=== PATIENT | male | born 1960 | race Caucasian/White ===

== ENCOUNTER 2018-11-25 05:08 | Inpatient (IN) ==
--- NOTE | 2018-11-12 15:26 | Anesthesiology Consultation ---
Date of Service November 12, 2018 History Surgery Operation Date: 11/25/18 07:30 Proposed Procedures p Robotic Assisted Laparoscopic Radical Retropubic Prostatectomy - Kushal Allred MD Height/Weight Height: 5 ft 11 in Weight: 71.668 kg Allergies Allergy/AdvReac Type Severity Reaction Status Date / Time No Known Allergies Allergy Verified 11/10/18 08:18 Medications Home Medications Medication Instructions Recorded Confirmed Last Taken aspirin [Aspir-81] 81 mg PO QAM 11/10/18 11/10/18 Unknown atorvastatin 20 mg PO QAM 11/10/18 11/10/18 Unknown lisinopril 20 mg PO QAM 11/10/18 11/10/18 Unknown magnesium oxide 250 mg PO BID 11/10/18 11/10/18 Unknown metformin 1,000 mg PO BID 11/10/18 11/10/18 Unknown multivitamin 1 cap PO QAM 11/10/18 11/10/18 Unknown pantoprazole 40 mg PO QAM 11/10/18 11/10/18 Unknown ranitidine HCl [Zantac 75] 75 mg PO HS 11/10/18 11/10/18 Unknown thiamine HCl (vitamin B1) 50 mg PO QAM 11/10/18 11/10/18 Unknown Past Medical History Medical History Barretts esophagus DX SEP 2015, PT WAS HAVING GI BLEED ISSUES AND EVALUATED. Borderline diabetes PT PLACED ON METFORMIN Chronic obstructive pulmonary disease GERD (gastroesophageal reflux disease) History of cirrhosis of liver History of gastric ulcer History of prostate cancer RECENT DIAGNOSIS History of tooth extraction Hyperlipidemia Hypertension Sleep apnea PT DOES NOT WEAR DEVICE Past Surgical History Surgical History History of cardiac cath [facility]. [facility], PT HAS STENT X1. NO HX OF GA, PT WAS EVALUATED FOR SYMPTOMS OF CHEST PAIN, NO HX OF GA. History of colonoscopy History of esophagogastroduodenoscopy (EGD) History of heart artery stent History of tonsillectomy Social History Smoking Status: Former smoker tobacco type: cigarettes Smoking cigarettes per day: QUIT 11 YEARS. HX OF 1.5PPD Do You Dip or Chew Tobacco: No Hx Alcohol Use: No Alcohol Intake Frequency Comment: QUIT 2 YEARS AGO Hx Substance Use: No substance use type: marijuana Substance Use Type Other:: OCC. USE.
--- NOTE | 2018-11-12 15:39 | PAT Medication Instructions ---
Medication Instructions Date of Service November 12, 2018 Home Medications aspirin [Aspir-81] 81 mg PO QAM atorvastatin 20 mg PO QAM lisinopril 20 mg PO QAM magnesium oxide 250 mg PO BID metformin 1,000 mg PO BID multivitamin 1 cap PO QAM pantoprazole 40 mg PO QAM ranitidine HCl [Zantac 75] 75 mg PO HS thiamine HCl (vitamin B1) 50 mg PO QAM ASK your prescriber and surgeon aspirin [Aspir-81] 81 mg PO QAM DO NOT take the morning of surgery lisinopril 20 mg PO QAM magnesium oxide 250 mg PO BID metformin 1,000 mg PO BID multivitamin 1 cap PO QAM thiamine HCl (vitamin B1) 50 mg PO QAM Take morning of surgery With a small sip of water, OTHERWISE NOTHING TO EAT OR DRINK AFTER MIDNIGHT: atorvastatin 20 mg PO QAM pantoprazole 40 mg PO QAM Take evening before surgery magnesium oxide 250 mg PO BID metformin 1,000 mg PO BID ranitidine HCl [Zantac 75] 75 mg PO HS Other Notes If you have any questions please call us at [phone] or [phone] or [phone] or [phone]
--- NOTE | 2018-11-13 09:17 | Anesthesiology Consultation ---
Date of Service November 13, 2018 Assessment & Plan (1) Encounter for pre-operative examination: Cardiology clearance 11/19/2018: "He denies anginal symptoms at greater than 4 metastases of activity. No evidence of CHF or significant valvular abnormality. His LV systolic function was noted to be normal at the time of his cardiac cath in February 2016. Unfortunately his blood pressure is rather elevated in the clinic today. Recommend his blood pressure be further optimized before surgery. His lisinopril dose will therefore be increased to 40 mg daily... Otherwise patient is at an acceptable risk to proceed with surgery without any additional cardiovascular testing or intervention. Recommend he remain on his aspirin therapy throughout the perioperative period given his history of intracoronary stenting. He would be at an increased cardiovascular risk if he would hold the medication." Surgeon was contacted regarding ASA recommendations. He initially wanted the patient off of ASA for 10 days prior to surgery, and this was OK'd by the PCP. Given new cardio recommendations, surgeon agreeable to proceed with surgery with patient on ASA. Surgeon's office contacted pt and instructed him to take his ASA. Pt to PCP office 11/19 for BP check after taking second dose of 20mg Lisinopril. Per verbal from nurse at PCP office, BP was 134/70. Pt to PCP office 11/24 for BP recheck -- BP 148/72. Chart Review Chart Review: Acceptable Risk for Surgery and Patient seen in Pre Admission Testing Teaching & Discussion Instructed NPO after midnight before surgery, except medications with 15 cc of water. Medication instructions provided according to the PAT guidelines. History Surgery Operation Date: 11/25/18 07:30 Proposed Procedures p Robotic Assisted Laparoscopic Radical Retropubic Prostatectomy - Kushal Allred MD Height/Weight Height: 5 ft 11 in Weight: 73.2 kg Allergies Allergy/AdvReac Type Severity Reaction Status Date / Time No Known Allergies Allergy Verified 11/25/18 05:57 Medications Home Medications Medication Instructions Recorded Confirmed Last Taken aspirin [Aspir-81] 81 mg PO QAM 11/10/18 11/25/18 11/24/18 06:00 atorvastatin 20 mg PO QAM 11/10/18 11/25/18 11/24/18 06:00 lisinopril 20 mg PO QAM 11/10/18 11/25/18 11/25/18 03:30 magnesium oxide 250 mg PO BID 11/10/18 11/25/18 11/24/18 06:00 metformin 1,000 mg PO BID 11/10/18 11/25/18 11/24/18 06:00 multivitamin 1 cap PO QAM 11/10/18 11/25/18 11/24/18 06:00 pantoprazole 40 mg PO QAM 11/10/18 11/25/18 11/25/18 03:30 ranitidine HCl [Zantac 75] 75 mg PO HS 11/10/18 11/25/18 11/23/18 18:00 thiamine HCl (vitamin B1) 50 mg PO QAM 11/10/18 11/25/18 11/24/18 06:00 Active Medications Generic Name Dose Route Start Last Admin Trade Name Freq PRN Reason Stop Dose Admin Heparin Sodium (Porcine) 5,000 units 11/25/18 06:00 11/25/18 06:27 Heparin Sodium (Porcine) SC 11/25/18 18:00 5,000 units PREOP ALANNA Administration Lactated Ringer's 1,000 mls @ 15 mls/hr 11/25/18 06:00 11/25/18 06:12 Lr IV 11/26/18 05:59 15 mls/hr .Q24H ALANNA Administration Past Medical History Medical History Barretts esophagus DX SEP 2015, PT WAS HAVING GI BLEED ISSUES AND EVALUATED. Borderline diabetes PT PLACED ON METFORMIN Chronic obstructive pulmonary disease No inhalers. GERD (gastroesophageal reflux disease) History of cirrhosis of liver LFTs being monitored by PCP History of gastric ulcer History of prostate cancer RECENT DIAGNOSIS Hyperlipidemia Hypertension Sleep apnea PT DOES NOT WEAR DEVICE CAD (coronary artery disease) s/p stent 2014 Past Surgical History Surgical History History of cardiac cath 2014. [facility], STENT X1. NO HX OF [place], PT WAS EVALUATED FOR SYMPTOMS OF CHEST PAIN. History of colonoscopy History of esophagogastroduodenoscopy (EGD) History of heart artery stent History of tonsillectomy History of tooth extraction Past Anesthesia History No Hx of Anesthesia Complications and No Family Hx of Anesthesia Complications History of PONV No Motion Sickness Screening History of Motion Sickness: No Social History Smoking Status: Former smoker tobacco type: cigarettes Smoking cigarettes per day: QUIT 11 YEARS. HX OF 1.5PPD Do You Dip or Chew Tobacco: No Hx Alcohol Use: No Alcohol Intake Frequency Comment: QUIT 2 YEARS AGO Hx Substance Use: No substance use type: marijuana Substance Use Type Other:: OCC. USE. Exercise / Class Metabolic Activity II 4-5 Yardwork/Stairs/Walk up hill (Pt is fairly active, does yardwork, walks his dog, mild occ SOB with stairs) Review of Systems Pt denies any recent chest pain, shortness of breath, palpitations, cough, fever or URI. Physical Exam Vital Signs Last Vital Signs Temp 37.4 C 11/25/18 06:09 Pulse 64 11/25/18 06:09 Resp 16 11/25/18 06:09 BP 174/95 H 11/25/18 06:09 Pulse Ox 96 11/25/18 06:09 BP: 169/104 (140/98 on re-check with manual) P: 50 SPO2: 97% RA T: 98.3 F R: 18 ENMT Mouth: no dentures, no dental restorations, no chipped teeth and no loose teeth Thyromental Distance: < 3.5 Finger Breadths (3) Mallampati Class: II Neck normal visual inspection and + facial hair (very short [place]); neck extension not limited Respiratory normal respiratory effort Auscultation: lungs clear to auscultation bilaterally Cardiovascular Rate/Rhythm: regular rhythm and + bradycardic Heart Sounds: no murmur Vessels: no carotid bruit Extremities: no edema Distant heart sounds Testing Electrocardiogram Date: 09/25/18 Findings: + NSR @ (66) Occasional PVCs. Chest X-Ray Date: 11/13/18 1. No active disease in the chest. 2. Suspect emphysematous change. Cardiac Catheterization Date: 02/29/16 Successful angioplasty and stenting of obtuse marginal branch with a drug- eluting stent via right radial artery access. Laboratory Results 11/13/18 08:50 11/13/18 08:50 Blood Type A Positive 11/13/18 08:50 Antibody Screen NEGATIVE 11/13/18 08:50 11/25/18 05:50 POC Glucose 135 H
--- NOTE | 2018-11-13 09:43 | XRay Report ---
TWO VIEW CHEST CLINICAL HISTORY: Preoperative examination. FINDINGS: PA and lateral chest radiographs are obtained. No prior studies are available for compariso n at the time of dictation. The cardiomediastinal silhouette is unremarkable, noting atherosclerotic calcification of the thoracic aorta. Emphysematous change is suspected. No airspace consolidation or pleural effusion is identified. There is no pneumothorax. The bony thorax appears intact. IMPRESSION: 1. No active disease in the chest. 2. Suspect emphysematous change. Electronically signed by: Stanford Morfin M.D. 11/13/2018 9:42 AM
[2018-11-13 10:25] LABS: Basophils # (auto) 0.02 K/uL (0-0.2); Basophils % (auto) 0.2 %; Eosinophils # (auto) 0.09 K/uL (0-0.5); Hematocrit (blood only) 42.7 % (42-52); Hemoglobin 14.7 g/dL (14.0-18.0); Immature Granulocytes # (auto) 0.01 K/uL (0.00-0.02); Immature Granulocytes % (auto) 0.1 %; Lymphocytes # (auto) 3.09 K/uL (1.2-3.4); Lymphocytes % (auto) 34.2 %; Mean Corpuscular Hgb Conc 34.4 g/dL (32-36); Mean Corpuscular Volume 92.6 fL (80-100); Mean Platelet Volume 9.9 fL (7.4-10.4); Monocytes % (auto) 5.5 %; Neutrophils # (auto) 5.33 K/uL (1.4-6.5); Platelet Count 256 K/uL (130-400); RDW Coefficient of Variation 12.7 % (11.5-14.5); RDW Standard Deviation 42.9 fL (36.4-46.3); Red Blood Count 4.61 M/uL (4.7-6.1); White Blood Count 9.04 K/uL (4.8-10.8)
[2018-11-13 10:32] LABS: BUN Creatinine Ratio 18.4 (10-20); Calcium 9.4 mg/dl (8.5-10.1); Est GFR (African American) 113.1; Est GFR (Non-African American) 97.6; Potassium 4.2 mmol/L (3.5-5.1)
[2018-11-25] MEDS ORDERED: HEPARIN SOD 5,000 UNIT/0.5 ML VIAL SC SCH (06:00)
[2018-11-25] MEDS ORDERED: CEFAZOLIN 2000MG 2,000 MG/15 ML SYR IV SCH (06:00)
[2018-11-25] MEDS ORDERED: LR 15ML/HR IV SCH (06:00)
[2018-11-25] MEDS ORDERED: GLYCOPYRROLATE 0.2 MG/ML VIAL ONE ×2 (07:05→08:26)
[2018-11-25] MEDS ORDERED: DEXAMETHASONE SOD INJ 4 MG/ML VIAL ONE (07:05)
[2018-11-25] MEDS ORDERED: PROPOFOL IV EMULSION 10 MG/ML 20 ML VIAL IV ONE (07:05)
[2018-11-25] MEDS ORDERED: LIDOCAINE HCL 2% 2 ML VIAL/AMP(20MG/ML) INFIL ONE (07:05)
[2018-11-25] MEDS ORDERED: ONDANSETRON INJ 2 MG/ML 2 ML VIAL ONE ×2 (07:05→08:26)
[2018-11-25] MEDS ORDERED: NEOSTIGMINE METHYLSULFATE 5 MG/5 ML SYR ONE (07:05)
[2018-11-25] MEDS ORDERED: MIDAZOLAM HCL 1 MG/ML 2ML VIAL ONE (07:06)
[2018-11-25] MEDS ORDERED: fentaNYL citrate 100 MCG/2 ML VIAL ONE (07:06)
[2018-11-25] MEDS ORDERED: BUPIVACAINE 0.5 % 5 MG/1 ML MPF 30ML VIAL ONE (07:09)
[2018-11-25] MEDS ORDERED: ATROPINE SULFATE 0.1 MG/ML 10ML SYR IV PRN (07:12)
[2018-11-25] MEDS ORDERED: ePHEDrine sulfate 50 MG/ML AMP IV PRN (07:12)
[2018-11-25] MEDS ORDERED: DEXAMETHASONE SOD INJ 4 MG/ML VIAL IV PRN (07:12)
[2018-11-25] MEDS ORDERED: HYDROmorphone INJ 2 MG/ML SYR/VIAL IV PRN (07:12)
[2018-11-25] MEDS ORDERED: ONDANSETRON INJ 2 MG/ML 2 ML VIAL IV PRN ×2 (07:12→12:21)
--- NOTE | 2018-11-25 07:21 | History & Physical Bridge Note ---
Date of Service November 25, 2018 History & Physical Bridge Note I have examined the patient, reviewed the History & Physical and in the interval since the performance of the History & Physical I have noted the following changes of clinical significance: no changes noted
[2018-11-25] MEDS ORDERED: BELLADONNA/OPIUM SUPP 60 MG SUPP PR ONE (07:53)
[2018-11-25] MEDS ORDERED: PHENYLEPHRINE 100MCG/ML 5ML SYR ONE (08:26)
[2018-11-25] MEDS ORDERED: HYDROmorphone INJ 2 MG/ML SYR/VIAL ONE (09:32)
[2018-11-25] MEDS ORDERED: ROCURONIUM BROMIDE 10 MG/ML 5 ML VIAL ONE (09:35)
[2018-11-25] MEDS ORDERED: FLOSEAL HEMOSTATIC MATRIX 10ML TOP ONE (10:12)
--- NOTE | 2018-11-25 10:21 | Operative Report ---
Post Operative Report Pre & Post Diagnosis Operation Date: 11/25/18 07:30 Pre-Op Diagnosis: Prostatic Cancer Post-Op Diagnosis: Prostatic Cancer Procedure Operation Date: 11/25/18 07:30 Actual Procedures p Robotic Assisted Laparoscopic Radical Retropubic Prostatectomy(Not Applicable) - Kushal Allred MD Surgeon Cali Allred MD Customer Complaint Service Supervisor Antonio Mckeon Estimated Blood Loss 50 Findings Consistent with Post-Op Diagnosis Specimens 1. periprostatic fat 2. Right pelvic lymph nodes 3. Left pelvic lymph nodes 4. prostate and seminal vesicles Description of Procedure The patient was identified in the preoperative holding area, appropriate informed consents were reviewed and completed, and he was transported to the operating suite. Subcutaneous heparin was administered in the pre-operative holding area. Upon arrival in the operating suite, he received appropriate antibiotics and general anesthesia. He was positioned in dorsal lithotomy, a B&O suppository was inserted after digital rectal exam, and he was prepped and draped in standard fashion. A Abdalla catheter was inserted in the sterile field. A Veress needle was passed per umbilicus with uniform insufflation of the abdomen to 15mmHg. He was placed in steep Trendelenburg position. A periumbilical incision was then made to accommodate a 12mm Visiport with 10mm 0degree laparoscope. Inspection of the abdomen was carried out, and there was no evidence of traumatic entry or injury secondary to the Veress needle. After confirming a clear anterior abdominal wa ll, ports were subsequently placed in standard robotic prostatectomy fashion without incident. To begin the robotic portion of the case, the left lateral aspect of the sigmoid was mobilized off of the left pelvic side wall to allow the pouch of Parker to be appropriately visualized. I then made an incision in the pouch of Parker, overlying the seminal vesicles. Both SVs as well as the ampullae of the vasa were entirely dissected, with the vasa transected 3cm from the prostate. The medial umbilical ligaments were then controlled with bipolar electrocautery just inferior to the umbilicus. Following cauterization, they were divided utilizing monopolar cautery. A peritoneal incision was carried from this location to the medial aspect of the internal inguinal rings bilaterally with care to avoid opening through the ring. This incision was concluded when the vas deferens was reached. Dissection of the bladder and prostate off of the posterior aspect of the pubic arch was completed allowing full visualization of the prostate. The fat overlying the prostate was removed en bloc and passed off the table as a specimen labeled "periprostatic fat". The endopelvic fascia was cleared during this portion of the procedure, and subsequently opened - first on the right and then the left. The incision through the endopelvic fascia began near the prostate-bladder junction and was carried to the apex with extreme care to preserve all lateral levator musculature as well as the periurethral musculature and sphincter complex. The puboprostatic ligaments were thinned slightly bilaterally before placing a 0-Vicryl figure of 8 stitch around the DVC. The lymph node dissection was then conducted. External iliac vessels were identified on the pelvic side wall. The packet of fat and lymphatic tissue that resides just under the iliac vein was elevated and off of the vein with a split and roll technique. The packet was dissected laterally to the circumflex vein and distally to the obturator nerve which was preserved. The proximal aspect of the packet was carried towards the bifurcation of the iliac vessels. A combination of monopolar and bipolar cautery were used to assist with control. Clips were placed at the proximal and distal aspects of the packet prior to transection. After completing the dissection on both sides, the packets were collected and passed off of the table as specimens labeled "pelvic lymph nodes". My attention then returned to the prostate, with identification of the bladder neck aided by gentle traction on the Abdalla catheter and lateral to medial pressure at the presumed level of the bladder neck with the robotic instruments. An anterior cystotomy was made, the Abdalla balloon deflated and the catheter guided through the incision to allow anterior retraction. I attempted to preserve maximal bladder neck musculature as I circumferentially dissected around the bladder neck. After incision through the posterior aspect of the mucosa, the dissection was carried through detrusor muscle until the bilateral ampullae of the vasa were identified. The previously dissected vasa and SVs were brought through the incision and used to elevated the prostate anteriorly. A posterior plane behind the prostate was then developed - splitting Denonvilliers's fascia. This dissection was carried as far as possible towards the apex as well as far as possible laterally. An incision in the lateral prostatic fascia was then made bilaterally to facilitate control of the vascular pedicles. The pedicles were each controlled with a vessel sealer device. The neurovascular bundles were identified with a wide dissection conducted around the left side of the prostate and very cautious dissection around the right side. The apical attachments of the prostate were remaining at that stage. The DVC was divided with bipolar electrocautery. Marbella-prostatic tissue incised with sharp dissection and monopolar cautery. Maximal urethral length was preserved before dividing the urethra sharply. The prostate was entirely freed at that point, and collected in an EndoCatch bag before being moved out of the field of vision. Hemostasis was confirmed and anastomosis of the bladder and urethra was completed utilizing a double armed V- Lock stitch. A new Abdalla catheter was inserted and the anastomosis tested with irrigation. There was no evidence of leak. FloSeal coagulant was placed around the anastomosis. A "Sumeet" style stitch was placed on the right and left side of the bladder to marsupialize the area of the lymph node dissection. The robot was undocked, the specimen extracted through expansion of the marbella- umbilical camera port. The fascia was closed with a series of 0-PDS figure of 8 stitches. The right butcher's assistant port was closed in two layers - with a figure of 8 0-Vicryl to reapproximate the fascia followed by 4-0 Monocryl to close the skin. Monocryl was used to close all other skin incisions. All wounds were dressed with Dermabond. The case was concluded and the patient taken to the PACU in stable condition. Antonio Mckeon was present, scrubbed, and assisting for all parts of the case from incision to closure. I attest to the content of the Intraoperative Record and any orders documented therein. Any exceptions are noted below.
[2018-11-25 10:48] LABS: Basophils # (auto) 0.02 K/uL (0-0.2); Basophils % (auto) 0.1 %; Hematocrit (blood only) 40.9 % (42-52); Immature Granulocytes # (auto) 0.05 K/uL (0.00-0.02); Immature Granulocytes % (auto) 0.3 %; Lymphocytes # (auto) 1.61 K/uL (1.2-3.4); Lymphocytes % (auto) 9.8 %; Mean Corpuscular Volume 93.2 fL (80-100); Mean Platelet Volume 9.5 fL (7.4-10.4); Monocytes # (auto) 0.36 K/uL (0.11-0.59); Monocytes % (auto) 2.2 %; Neutrophils # (auto) 14.37 K/uL (1.4-6.5); Neutrophils % (auto) 87.6 %; Platelet Count 263 K/uL (130-400); RDW Coefficient of Variation 12.8 % (11.5-14.5); RDW Standard Deviation 43.7 fL (36.4-46.3); Red Blood Count 4.39 M/uL (4.7-6.1); White Blood Count 16.41 K/uL (4.8-10.8)
[2018-11-25] MEDS: fentaNYL citrate 100 MCG/2 ML VIAL IV PRN ×2 (10:51→10:56)
[2018-11-25 10:57] LABS: Mean Corpuscular Hgb Conc 34.2 g/dL (32-36)
[2018-11-25] MEDS ORDERED: LABETALOL HCL IV 5 MG/ML 20ML IV ONE (11:02)
[2018-11-25 11:04] LABS: BUN Creatinine Ratio 14.1 (10-20); Calcium 9.2 mg/dl (8.5-10.1); Creatinine Clr Calc Pharmacy 82.4 ml/min; Est GFR (African American) 100.4; Est GFR (Non-African American) 86.7; Potassium 4.2 mmol/L (3.5-5.1)
[2018-11-25] MEDS ORDERED: CARBOHYDRATES FOR HYPOGLYCEMIA PO PRN (11:15)
[2018-11-25] MEDS ORDERED: GLUCOSE 40% GEL 15 GM TUBE PO PRN (11:15)
[2018-11-25] MEDS ORDERED: GLUCAGON FOR INJ 1 MG VIAL IM PRN (11:15)
[2018-11-25] MEDS ORDERED: GLUCOSE 10 TABS/TUBE PO PRN (11:15)
[2018-11-25] MEDS ORDERED: DEXTROSE 50% 50 ML SYRINGE IV PRN (11:15)
[2018-11-25] MEDS ORDERED: LABETALOL HCL IV 5 MG/ML 20ML IV STA (11:17)
[2018-11-25] MEDS ORDERED: LABETALOL HCL IV 5 MG/ML 20ML IV PRN (11:29)
--- NOTE | 2018-11-25 11:39 | Anesthesiology Progress Note ---
Date of Service November 25, 2018 Anesthesia Post Procedure Vital Signs Vital Signs: Temp Pulse Pulse Resp BP BP Pulse Ox 11/25/18 11:35 37.6 C H 77 15 166/97 H 97 11/25/18 11:25 37.6 C H 80 15 168/99 H 97 11/25/18 11:15 77 15 162/93 H 94 11/25/18 11:05 80 15 181/100 H 94 11/25/18 10:55 73 12 174/98 H 100 11/25/18 10:45 75 13 198/104 H 100 11/25/18 10:35 78 13 174/120 H 100 11/25/18 10:27 36.7 C 75 20 185/95 H 99 11/25/18 06:09 37.4 C 64 16 174/95 H 96 Pain Intensity Abdomen: Pain Intensity: 5 Notes Mental Status: alert / awake / arousable and participated in evaluation Patient Amnestic to Procedure: Yes Nausea / Vomiting: adequately controlled Pain: adequately controlled Airway Patency, RR, SpO2: stable & adequate BP & HR: stable & adequate Hydration State: stable & adequate Anesthetic Complications: no major complications apparent
[2018-11-25] MEDS ORDERED: PHARMACY GLYCEMIC MGMT CONSULT PRN (11:52)
[2018-11-25] MEDS ORDERED: OXYCODONE HCL IR 5 MG TAB (IMMEDIATE RELEASE) PO PRN (12:21)
[2018-11-25] MEDS ORDERED: ACETAMINOPHEN 1,000 MG/100 ML VIAL IV PRN (12:21)
[2018-11-25] MEDS ORDERED: LANTUS PER UNIT CHARGE SQ ONE (12:30)
[2018-11-25 13:22] LABS: INR 1.1 (0.9-1.1); Prothrombin Time 11.3 Seconds (9.0-12.0)
[2018-11-25] MEDS: LACTATED RINGER'S 1,000 ML IV SCH ×2 (13:33→23:39)
[2018-11-25] MEDS: INSULIN ASPART 100 UNITS/ML 3 ML PEN SC SCH ×3 (13:36→21:16)
[2018-11-25] MEDS: FAMOTIDINE 20 MG in SYRINGE 3 ML IV SCH (14:04)
[2018-11-25] MEDS ORDERED: LISINOPRIL 20 MG TAB PO STA (15:17)
[2018-11-25] MEDS: CEFAZOLIN 2000MG 2,000 MG/15 ML SYR IV SCH ×2 (15:23→23:39)
--- NOTE | 2018-11-25 15:49 | Pharmacy Report ---
Glycemic Control Consultation - Date of Service November 25, 2018 - Scope Scope: Glycemic Pharmacist consulted by Giovanni CASTILLO on [11-25-18] for glycemic control and to write orders per [facility] inpatient glycemic control protocol - Objective Weight: 70.488 kg Accuchecks BSG (last 24hrs): 11/25/18 11/25/18 11/25/18 05:50 10:35 12:15 Glucose 176 H POC Glucose 135 H 162 H Laboratory Data (last 24hrs): 11/25/18 10:35 Potassium 4.2 Carbon Dioxide 31 Anion Gap 5.0 Creatinine 0.95 Est Cr Clr Drug Dosing 82.4 - Recent Pertinent Medications Outpatient Anti-diabetic Regimen: * metformin 1 gm bid * A1c = ordered for 4/3 AM Risk Factors for Insulin Resistance: * Steroids: Dxm 4 iv in OR * Recent Surgery: POD 0 * Diet: clear liquid - Assessment & Plan Assessment & Plan: ASSESSMENT: * 58 year old male s/p prostectomy now POD 0. Type 2 diabetic managed at home only on metformin. A1C ordered for 4/3 am. PMHx significant for htn, CAD, sleep apnea, htn COPD * Patient received steroids in OR (confirmed with nurse) therefore anticipate s teroid induced hyperglycemia * Will utilize basal/bolus dosing postop PLAN FOR INPATIENT GLYCEMIC CONTROL: * Pt is maintained on oral antidiabetic agents as an outpatient * Oral agents are not recommended for inpatient use d/t drug interactions, changing PO intake, and difficulty titrating for acute hyper/hypoglycemia. ADA recommends re-initiating outpatient oral agents 1-2 days prior to discharge if/when appropriate if they were held on admission. * Will hold oral agents for admission and utilize SQ basal bolus insulin regimen which is the recommended regimen for inpatient glycemic control. * Will initiate weight based insulin dosing for insulin krzysztof patient and titrate based on BSG trends. * Basal insulin * Lantus 12 units x 1 (half stress 2) - was less aggressive due to only starting clears/unclear to po intake at this time * Bolus insulin - add overnight check if diet improves/needs additional coverage * NovoLog per scale ACHS or Q6hrs while NPO * Goal Range: Low 110 mg/dL - High 140 mg/dL * Correction Factor: 30 mg/dL/unit * Nutritional / Prandial insulin per carb ratio of 1 unit per 9 grams CHO consumed * Please note that the plan above was derived based on current level of insulin resistance and hospital stress. These recommendations are appropriate for inpatient admission only. Plan of care upon discharge will need to be reassessed to avoid potential outpatient hypo/hyperglycemia. Thank you.
[2018-11-25] MEDS: MAGNESIUM OXIDE 400 MG TAB PO SCH (20:41)
[2018-11-25] MEDS: DOCUSATE SODIUM 100 MG CAP PO SCH (20:41)
[2018-11-25] MEDS: HEPARIN SOD 5,000 UNIT/0.5 ML VIAL SQ SCH (20:42)
[2018-11-25] MEDS: OXYCODONE HCL IR 5 MG TAB (IMMEDIATE RELEASE) PO PRN (21:29)
[2018-11-25] MEDS: MoRPHine SULFATE 4 MG/ML 1 ML CARP\\VIAL IV PRN (23:39)
[2018-11-26] MEDS ORDERED: INSULIN ASPART 100 UNITS/ML 3 ML PEN SC SCH
[2018-11-26] MEDS: FAMOTIDINE 20 MG in SYRINGE 3 ML IV SCH (02:06)
[2018-11-26] MEDS: MoRPHine SULFATE 4 MG/ML 1 ML CARP\\VIAL IV PRN (04:18)
[2018-11-26 07:08] LABS: Basophils # (auto) 0.01 K/uL (0-0.2); Basophils % (auto) 0.1 %; Hematocrit (blood only) 38.1 % (42-52); Immature Granulocytes # (auto) 0.04 K/uL (0.00-0.02); Immature Granulocytes % (auto) 0.2 %; Lymphocytes % (auto) 14.6 %; Mean Corpuscular Hgb Conc 34.1 g/dL (32-36); Mean Corpuscular Volume 92.7 fL (80-100); Mean Platelet Volume 9.4 fL (7.4-10.4); Monocytes # (auto) 1.62 K/uL (0.11-0.59); Monocytes % (auto) 9.8 %; Neutrophils # (auto) 12.42 K/uL (1.4-6.5); Neutrophils % (auto) 75.3 %; Platelet Count 246 K/uL (130-400); RDW Coefficient of Variation 12.8 % (11.5-14.5); RDW Standard Deviation 43.2 fL (36.4-46.3); Red Blood Count 4.11 M/uL (4.7-6.1); White Blood Count 16.49 K/uL (4.8-10.8)
[2018-11-26 07:42] LABS: BUN Creatinine Ratio 20.3 (10-20); Calcium 9.1 mg/dl (8.5-10.1); Creatinine Clr Calc Pharmacy 124.3 ml/min; Est GFR (African American) 124.1; Est GFR (Non-African American) 107.1; Potassium 4.3 mmol/L (3.5-5.1)
--- NOTE | 2018-11-26 07:43 | Urology Progress Note ---
Date of Service November 26, 2018 Assessment & Plan (1) Prostate cancer: POD#1 s/p robotic prostatectomy - doing very well - advance diet - cont ambulation - likely d/c home later today Subjective Doing very well - ambulating in the hallway - minimal pain - no nausea/vomiting Physical Exam Vital Signs (Past 24 Hours): Last Vital Signs Temp 36.9 C 11/26/18 03:42 Pulse 68 11/26/18 03:42 Resp 18 11/26/18 03:42 BP 173/97 H 11/26/18 03:42 Pulse Ox 97 11/26/18 03:42 Physical Exam: AFVSS abd soft incisions appropriate ewir clear
[2018-11-26 08:25] LABS: Estimated Average Glucose 123 mg/dl; Hemoglobin A1C 5.9 % (4.5-5.6)
--- NOTE | 2018-11-26 08:33 | Anesthesiology Progress Note ---
Date of Service November 26, 2018 Anesthesia Post Procedure Vital Signs Vital Signs: Temp Pulse Pulse Pulse Pulse Resp BP 11/26/18 07:30 37.1 C 63 18 11/26/18 03:42 36.9 C 68 18 11/26/18 02:01 65 11/25/18 22:57 36.7 C 69 16 11/25/18 17:45 11/25/18 16:17 73 11/25/18 15:56 36.9 C 40 L 18 11/25/18 14:54 60 18 11/25/18 13:41 68 18 11/25/18 12:46 55 L 18 161/84 H 11/25/18 12:14 84 18 176/108 H 11/25/18 11:45 37.3 C 77 18 11/25/18 11:35 37.6 C H 77 15 11/25/18 11:25 37.6 C H 80 15 11/25/18 11:15 77 15 11/25/18 11:05 80 15 11/25/18 10:55 73 12 11/25/18 10:45 75 13 11/25/18 10:35 78 13 11/25/18 10:27 36.7 C 75 20 BP BP Pulse Ox Pulse Ox 11/26/18 07:30 168/96 H 96 11/26/18 03:42 170/94 H 173/97 H 97 11/26/18 02:01 169/93 H 11/25/18 22:57 184/88 H 96 11/25/18 17:45 147/90 H 11/25/18 16:17 11/25/18 15:56 168/95 H 95 11/25/18 14:54 183/94 H 97 11/25/18 13:41 158/103 H 93 11/25/18 12:46 93 11/25/18 12:14 94 11/25/18 11:45 158/96 H 94 94 11/25/18 11:35 166/97 H 97 11/25/18 11:25 168/99 H 97 11/25/18 11:15 162/93 H 94 11/25/18 11:05 181/100 H 94 11/25/18 10:55 174/98 H 100 11/25/18 10:45 198/104 H 100 11/25/18 10:35 174/120 H 100 11/25/18 10:27 185/95 H 99 Pain Intensity Abdomen: Pain Intensity: 2 Notes Mental Status: alert / awake / arousable and participated in evaluation Patient Amnestic to Procedure: Yes Nausea / Vomiting: adequately controlled Pain: adequately controlled Airway Patency, RR, SpO2: stable & adequate BP & HR: stable & adequate Hydration State: stable & adequate Anesthetic Complications: no major complications apparent
[2018-11-26] MEDS ORDERED: LISINOPRIL 20 MG TAB PO SCH (09:00)
[2018-11-26] MEDS ORDERED: ATORVASTATIN 20 MG TAB PO SCH (09:00)
[2018-11-26] MEDS ORDERED: THIAMINE HCL 50 MG TABLET PO SCH (09:00)
[2018-11-26] MEDS ORDERED: MULTIVITAMIN TAB PO SCH (09:00)
[2018-11-26] MEDS ORDERED: PANTOprazole 40 MG TAB PO SCH (09:00)
[2018-11-26] MEDS: CEFAZOLIN 2000MG 2,000 MG/15 ML SYR IV SCH (09:07)
[2018-11-26] MEDS: DOCUSATE SODIUM 100 MG CAP PO SCH (09:11)
[2018-11-26] MEDS: MAGNESIUM OXIDE 400 MG TAB PO SCH (09:11)
[2018-11-26] MEDS: HEPARIN SOD 5,000 UNIT/0.5 ML VIAL SQ SCH (09:12)
[2018-11-26] MEDS: INSULIN ASPART 100 UNITS/ML 3 ML PEN SC SCH (09:13)
[2018-11-26] MEDS: LACTATED RINGER'S 1,000 ML IV SCH (09:22)
--- NOTE | 2018-11-26 10:40 | Pharmacy Report ---
Pharmacy Glycemic Short Note 2 - Date of Service November 26, 2018 - Glycemic Short BSG Results (Last 24 hours): 11/25/18 11/25/18 11/25/18 10:35 12:15 17:26 Glucose 176 H POC Glucose 162 H 174 H 11/25/18 11/25/18 11/26/18 20:49 23:39 06:57 Glucose 100 H POC Glucose 140 H 111 H 11/26/18 08:17 Glucose POC Glucose 112 H ASSESSMENT: * 58 year old male s/p prostectomy now POD 0. Type 2 diabetic managed at home only on metformin. A1C ordered for 11/26 am. PMHx significant for htn, CAD, sleep apnea, htn COPD * Patient received steroids in OR (confirmed with nurse) therefore anticipate steroid induced hyperglycemia * Will utilize basal/bolus dosing postop 11/26: * Patient received total of 19 units of insulin yesterday, of which 12 units were basal insulin * Fasting BSG this am 100 mg/dL - anticipate steroids to be wearing off; will hold further Lantus dosing * BSGs yesterday 162-174-140 mg/dL ; patient had been started on clears yesterday, diet advance to T2DM this am, intake appears still minimal ; will loosen CF/CR for this morning - may need to tighten if diet improves more * Will consider adding metformin tomorrow morning, as diet is variable at this time PLAN FOR INPATIENT GLYCEMIC CONTROL: * Pt is maintained on oral antidiabetic agents as an outpatient * Oral agents are not recommended for inpatient use d/t drug interactions, changing PO intake, and difficulty titrating for acute hyper/hypoglycemia. ADA recommends re-initiating outpatient oral agents 1-2 days prior to discharge if/when appropriate if they were held on admission. * Will hold oral agents for admission and utilize SQ basal bolus insulin regimen which is the recommended regimen for inpatient glycemic control. * Will initiate weight based insulin dosing for insulin krzysztof patient and titrate based on BSG trends. * Basal insulin * Lantus - hold * Bolus insulin - loosen this AM * NovoLog per scale ACHS or Q6hrs while NPO * Goal Range: Low 110 mg/dL - High 140 mg/dL * Correction Factor: 35 mg/dL/unit * Nutritional / Prandial insulin per carb ratio of 1 unit per 12 grams CHO consumed * Please note that the plan above was derived based on current level of insulin resistance and hospital stress. These recommendations are appropriate for inpatient admission only. Plan of care upon discharge will need to be reassessed to avoid potential outpatient hypo/hyperglycemia. Thank you. PLAN FOR DISCHARGE: * A1C of 5.9% indicates great glycemic control outpatient - would recommend continuation of metformin as long as patient does not report any low BSGs at home
[2018-11-26] MEDS: OXYCODONE HCL IR 5 MG TAB (IMMEDIATE RELEASE) PO PRN (14:07)
--- NOTE | 2018-12-01 07:55 | Discharge Summary ---
Date of Service December 01, 2018 Admission HPI Per Admitting Provider admitted for prostatectomy secondary to recently diagnosed prostate cancer Principal Diagnosis Prostate cancer Discharge Data Allergies Allergy/AdvReac Type Severity Reaction Status Date / Time No Known Allergies Allergy Verified 11/25/18 05:57 Procedures Performed Operation Date: 11/25/18 07:30 Actual Procedures p Robotic Assisted Laparoscopic Radical Retropubic Prostatectomy(Not Applicable) - Kushal Allred MD Hospital Course (1) Prostate cancer: Patient admitted for a robotic prostatectomy - details of the procedure as dictated previously in my operative report - in summary, he tolerated the procedure very well - he was in stable condition overnight with appropriate urine output and stable labs - he was subsequently discharged home with a weir catheter - he was in stable condition at the time of discharge Total Time Total Time Spent Total Time Spent (In Minutes): 30 Total Time Includes: Examination of the Patient, Discharge Planning and Medication Reconciliation Discharge Plan Discharge Items Patient Disposition: Home - Self-Care Reason For Visit: Prostatic Cancer Discharge Diagnosis: prostate cancer Discharge Goals: Diagnostic testing and Improve function Activity: As commented below Activity Comment: Walking and stairs in your home are okay Lifting: No more than 10 pounds Bathing: Keep incision dry Bathing Comment: Okay to shower. No tub baths/soaking. Do not pick at surgical glue. Sexual Activity: Wait until after follow-up appointment Exercise/Sports: Rest today and Wait until after follow-up appointment Driving/Machine Use: Resume 1 day after discharge Driving/Machine Use Comment: Please do not drive while taking prescription pain medication. Non-emergency contact: Urologist Call non-emergency contact if: you have any medication questions, your pain is not controlled, your pain is concerning for you, your temperature is above 101, your wound has increased redness, your wound has increased drainage and your wound pain has increased Follow-up/Referrals: Kushal Allred MD [Physician] - 12/01/18 9:00 am ([facility] nursing visit for voiding trial, please start antibiotic on Saturday) Jakub Simpson DO [Primary Care Provider] - Diet: Regular Addtl Provider Instructions: Please take all medications as prescribed and keep all follow-ups as scheduled. Please call our office at [phone] with any questions, concerns or need to reschedule appointments for any reason. We are happy to assist you Activity: We recommend having someone with you for the first few days after surgery to help care for you. For the first 2 weeks after surgery, we would like you to get up and walk around your house. However, we recommend limit physical activity that would increase your heart rate. This will allow your body to rest and heal. Take naps if you feel tired. Don't lift anything heavier than 10 pounds, mow the law or ride a bicycle until your follow-up appointment. Please avoid long car rides. Home Care: Unless directed otherwise, drink 6 to 8 glasses of water a day (enough to keep your urine light colored). This will also help keep a healthy flow of urine. We recommend using a stool softener for the first two weeks to avoid constipation. Weir Catheter care: Keep the catheter well secured with either a leg back or leg strap with large bag. Empty your bag when it's about half full. You may notice some blood in the bag. This is normal after surgery and while the catheter is in place. Use mild soap (such as Dove or Dial) and water to wash the catheter and the head of your penis daily, or more frequently if needed. Return to your normal diet, we encourage good protein intake to promote healing. You may shower as normal. Please avoid tub baths or soaking until catheter removed and incisions well healed. Wearing sweat pants while you have the catheter is recommended, they will be more comfortable. Follow-up Your follow up appointments for having your catheter removed, and follow up with your physician should already be scheduled. If you have any questions regarding this, please contact our office. Your final pathology report will be discussed at your physician follow-up appointment. We have sent an antibiotic to your pharmacy of choice. Please begin antibiotic as prescribed the day BEFORE your scheduled voiding trial at [facility]. Please continue antibiotic every 12 hours through the day AFTER your voiding trial. Call [facility] at [phone] right away if you have any of the following: Chest pain or trouble breathing (call [phone] or go to the hospital) Fever of 101F or higher, uncontrolled vomiting Heavy bleeding, clots, or bright red blood from the catheter Catheter that falls out or stops draining Foul-smelling discharge from your catheter Redness, swelling, warmth, or increased pain at your incision site Drainage, pus, or bleeding from your incision Prescriptions: New ciprofloxacin HCl 500 mg tablet 500 mg PO BID Qty: 6 RF: 0 docusate sodium [Colace] 100 mg capsule 100 mg PO BID Qty: 60 RF: 0 acetaminophen-codeine [Tylenol-Codeine #3] 300-30 mg tablet 1 tab PO Q6H PRN (Reason: pain) Qty: 14 RF: 0 Continued atorvastatin 20 mg Tablet 20 mg PO QAM RF: 0 lisinopril 20 mg Tablet 20 mg PO QAM RF: 0 aspirin [Aspir-81] 81 mg Tablet,Delayed Release (Dr/Ec) 81 mg PO QAM RF: 0 ranitidine HCl [Zantac 75] 75 mg Tablet 75 mg PO HS RF: 0 pantoprazole 40 mg Tablet,Delayed Release (Dr/Ec) 40 mg PO QAM RF: 0 metformin 1,000 mg Tablet 1,000 mg PO BID RF: 0 multivitamin Capsule 1 cap PO QAM RF: 0 thiamine HCl (vitamin B1) 50 mg Tablet 50 mg PO QAM RF: 0 magnesium oxide 250 mg magnesium Tablet 250 mg PO BID RF: 0 Stand-Alone Forms: [employer] [facility] [place] [employer], [facility] [employer]/Other Patient Handouts: Catheter Indwelling Urinary Dc, Leg Bag Care Dc Discharge Orders: Discharge Order (Routine); Ordered 11/26/18 Ordered By: Beba Mckeon Admission Data Admit Date/Time: 11/25/18 10:05 Attending Provider: Kushal Allred Admit Provider: Kushal Allred Primary Care Provider: Jakub Simpson Service: Surgical Services Other Interventions: Discharge Summary Assessment (RN) Last Done: 11/26/18 12:35 Pending Studies at Discharge: Yes (prostate, Seminal vesicles and pelvic lymph node pathology) DC Date/Time DO NOT enter until pt leaves facility: 11/26/18 14:34
--- NOTE | 2018-12-03 13:40 | Coding Query ---
PATHOLOGY To promote full compliance with coding requirements relating to patient care, physician participation is requested in all cases of subway conductor uncertainty. Please assist us with the question(s) below: Please review the Pathology report and please document any relevant diagnosis(es) below: Diagnosis(es): Prostate cancer Thank you JAMIL Bonilla [facility]
== END 2018-11-26 14:34 | disposition home or self-care (01) | DRG 708 ==
LOC: ASU 05:08 → 3N 10:05